=== PATIENT | female | born 1960 | race Caucasian/White ===

== ENCOUNTER 2024-03-02 07:02 | Emergency (ER) | payer OTHER, SELFPAY ==
[2024-03-02] VITALS (19 sets, daily range): BP systolic 125–172; BP diastolic 55–91; PULSE 58–70; RESP 14–20; TEMP 36.5–36.7; O2SAT 98–100
--- NOTE | ~2024-03-02 | CT_ITS ---
CT ANGIOGRAM NECK AND HEAD History: Syncope, dizziness. Technique: Axial noncontrast imaging of the brain was performed. Serial spiral axial images through t he head and neck were then obtained during arterial phase IV injection of 100 cc of Omnipaque 350. 3- D postprocessing and MIP images were then reconstructed on the remote workstation. Dose reduction telma hnique was used on this scan by utilizing automated exposure control and iterative reconstruction telma hnique. The dose-length product (DLP) was 1651.80 mGy-cm. CTA neck findings: Bilateral vertebral arteries are patent. Bilateral common carotid, internal carot id, and external carotid arteries are patent. No large vessel occlusion or stenosis. No aneurysm. The proximal right internal carotid artery demonstrates 0% stenosis relative to the normal distal artery lumen diameter. The proximal left internal carotid artery demonstrates 0% stenosis relative to the n ormal distal artery lumen diameter. CTA head findings: Distal vertebral arteries, basilar artery, posterior cerebral arteries are patent. Distal internal carotid arteries, middle cerebral arteries, anterior cerebral arteries are patent. L eft anterior cerebral artery A1 segment is markedly hypoplastic. No other large vessel occlusion or s tenosis. No aneurysm. Axial noncontrast imaging of the brain is unremarkable. No acute infarct, intracranial hemorrhage or mass lesion seen. No mass effect or midline shift. Focal nonspecific mild hyperdensity noted in the l eft basal ganglia, likely chronic microvascular ischemic change. Paranasal sinuses and mastoid air ce lls are clear. Calvarium intact. Impression: No significant vascular abnormality seen. No definite acute intracranial abnormality seen. Probable focal chronic microvascular ischemic change in the left basal ganglia region. Reviewed, dictated and finalized at location . TECHNICIAN Impression: No significant vascular abnormality seen. No definite acute intracranial abnormality seen. Probable focal chronic microva scular ischemic change in the left basal ganglia region.
--- NOTE | ~2024-03-02 | XR_ITS ---
XR chest 1V portable 03/02/2024 08:16 Indication: Dizziness Procedure: AP portable chest Comparison: No prior studies for comparison. Findings: Heart size normal. There are bilateral interstitial infiltrates. No pleural effusion. No pn eumothorax. No acute osseous abnormality. Impression: 1: Bilateral interstitial infiltrates which may reflect atypical pneumonia or edema. Reviewed, dictated and finalized at location B. T PROTECTION SPECIALIST Impression: 1: Bilateral interstitial infiltrates which may reflect atypical pneumonia or e [place].
--- NOTE | 2024-03-02 07:06 | ECG_ITS ---
Test Date: 2024-03-02 07:11:24 Measurements Intervals [place] Rate: 57 P: 19 TN: 148 QRS: 8 QRSD: 89 T: 30 QT: 401 QTc: 394 Interpretive Statements SINUS BRADYCARDIA NONSPECIFIC T-WAVE ABNORMALITY No previous ECG available for comparison Electronically Signed On 03-02-2024 16:17:00 [employer]OUR[employer]IPE [employer] by Thad Mclean M.D.
--- NOTE | 2024-03-02 07:15 | ED_ITS ---
HPI - Dizziness General Chief Complaint: Dizziness Stated Complaint: dizzy,weak,syncope History of Present Illness HPI Narrative: 63 old female present to the emergency department for evaluation for onset of dizziness and a syncopal episode. States that she felt fine last night and had increased dizziness when she woke up this more. Patient states that when she got up and started walking she had onset of dizziness. Patient is not able to provide much explanation as to what happened this morning or what her symptoms are. Patient's primary complaint at time of evaluation was that she felt tired and cold. Patient reports she does not have any history of chest pain. Patient denies any focal numbness or weakness. Related Data Allergies Allergy/AdvReac Type Severity Reaction Status Date / Time Penicillins Allergy Unknown Unknown Verified 03/02/24 08:21 Review of Systems 2 Review of Systems: All systems reviewed & are unremarkable except as noted in HPI and below PMFSH Family History Family History (Updated 05/03/14 @ 10:06 by DOCTOR UNKNOWN) Other Diabetes mellitus Hypertension Social History Social History Smoking status: Never smoker Alcohol intake: current Exam 2 Narrative: APPEARANCE: Well appearing, no pain, no distress, well-nourished. HEAD: normocephalic, atraumatic. EYES: PERRLA/EOMI, conjunctivae clear. NOSE: Normal no drainage EARS:TMS clear with good light reflex. THROAT: Pharynx clear, no exudate. NECK: Supple. No adenopathy, no masses. RESPIRATORY: Airway patent, respirations nonlabored. Clear to auscultation bilaterally, no rales, rhonchi, wheezing. CARDIOVASCULAR: Regular rate and rhythm without murmurs rubs or gallops. ABDOMINAL: Soft, nontender, nondistended, normal bowel sounds MUSCULOSKELETAL: Moves all extremities. Strength/ROM intact, No edema, No calf tenderness. NEURO: Alert. Cranial nerves II through XII intact. Grossly intact. No focal neuro deficit, no drift. SKIN: Warm, dry. Normal Color Course Vital Signs Vital signs: Vital Signs Pulse Rate 64 03/02/24 07:15 Respiratory Rate 19 03/02/24 07:15 Pulse Oximetry 100 03/02/24 07:15 Temperature 97.8 F 03/02/24 14:30 Pulse Rate 66 03/02/24 14:32 Respiratory Rate 15 03/02/24 14:32 Blood Pressure 157/67 H 03/02/24 14:32 Pulse Oximetry 98 03/02/24 14:30 Oxygen Delivery Room Air 03/02/24 07:34 MDM - Dizziness MDM Narrative Medical decision making narrative: [age] old female presents to the emergency department for evaluation for increased dizziness. Patient was treated with meclizine and felt this improved her symptoms. Patient is afebrile with no leukocytosis and hemoglobin of 14.3. No acute abnormalities on the patient's CMP CTA was negative for acute intracranial abnormality. On reexamination patient states she was having some increased weakness to her right hand but on re-evaluation patient still has a normal neuro exam with no drift and normal strength reflexes. Case was discussed with the hospitalist patient was accepted for admission for further workup including an MRI. After being present in the emergency department patient states she is having some intermittent right hand weakness. On re-examination patient had no pronator drift but patient states that she feels her right hand is becoming increasingly weak. Patient's weakness does resolve with motivation. Patient's MRI was expedited. Prior to having her MRI completed patient signed out against medical advice. Differential Diagnosis Differential diagnosis: Likely other (CVA, TIA, vertigo, central vertigo, peripheral vertigo, seizure) Lab Data Attestation: I reviewed the patient's lab results. 03/02/24 07:59 03/02/24 07:59 Labs: Lab Results 03/02/24 Range/Units 07:59 WBC 9.9 (4.5-10.0) K/mm3 RBC 4.58 (4.2-5.4) M/mm3 Hgb 14.3 (12.0-15.0) g/dL Hct 43.4 (37.0-47.0) % MCV 94.8 (80-100) fl MCH 31.2 (26-34) pg MCHC 32.9 (32-36) g/dl RDW 12.9 (11.5-14.5) % Plt Count 320 (150-375) k/mm3 MPV 10.4 (7.4-10.4) fl Immature Gran % (Auto) 0.7 H (0-0.5) % Neut % (Auto) 83.5 H (45.5-73.1) % Lymph % (Auto) 11.5 L (18.3-44.2) % [place] % (Auto) 3.6 (2.6-8.5) % Eos % (Auto) 0.2 (0-4.4) % Baso % (Auto) 0.5 (0.2-1.2) % Lymph # (Auto) 1.13 (0.9-3.2) K/mm3 [place] # (Auto) 0.4 (0.1-0.6) K/mm3 Eos # (Auto) 0.0 (0-0.3) K/mm3 Baso # (Auto) 0.1 (0.0-0.1) K/mm3 Abs Immat Gran (auto) 0.07 H (0.00-0.031) K/mm3 Absolute Neuts (auto) 8.2 H (1.3-6.7) K/mm3 Absolute Nucleated RBC 0.000 (0.0-0.012) K/mm3 Nucleated RBC % 0.0 (0.0-0.2) % Sodium 140 (137-145) mmol/L Potassium 4.1 (3.4-5.0) mmol/L Chloride 106 (98-107) mmol/L Carbon Dioxide 27 (22-30) mmol/L Anion Gap 7 (4-12) mmol/L BUN 16 (7-17) mg/dL Creatinine 0.80 (0.7-1.0) mg/dL Estim Creat Clear Calc 70 ml/min Estimated GFR > 60 (59 - ) Glucose 125 H (65-110) mg/dL Calcium 9.5 (8.4-10.2) mg/dL Total Bilirubin 0.5 (0.2-1.3) mg/dL AST 29 (14-36) U/L ALT 28 (6-35) U/L Alkaline Phosphatase 92 (38-126) U/L Total Protein 8.0 (6.3-8.2) g/dL Albumin 4.6 (3.5-5.1) g/dL Imaging Data Radiologist's impression: Impressions Chest X-Ray 03/02/24 08:18 Impression: 1: Bilateral interstitial infiltrates which may reflect atypical pneumonia or edema. Head/Neck CTA 03/02/24 09:02 Impression: No significant vascular abnormality seen. No definite acute intracranial abnormality seen. Probable focal chronic microvascular ischemic change in the left basal ganglia region. Discharge Plan Discharge Clinical Impression: Vertigo Patient Disposition: Left Against Medical Advice Condition: Serious Quality Stroke Scale Stroke Scale 1: 1a Level of consciousness: alert-0 1b Level of consciousness questions: answers both correctly-0 1c Level of consciousness commands: obeys both correctly-0 2 Best gaze: normal-0 3 Visual: no visual loss-0 4 Facial palsy: normal-0 5a Motor: left arm: no drift-0 5b Motor: right arm: no drift-0 6a Motor: left leg: no drift-0 6b Motor: right leg: no drift-0 7 Limb ataxia: absent-0 8 Sensory: normal-0 9 Best language: no aphasia-0 10 Dysarthria: normal-0 11 Extinction and inattention: no abnormality-0 Level:: 0
[2024-03-02 08:07] LABS: Basophils Absolute Auto 0.1 K/mm3 (0.0-0.1); Basophils Percent Auto 0.5 % (0.2-1.2); Eosinophils Percent Auto 0.2 % (0-4.4); Hematocrit 43.4 % (37.0-47.0); Hemoglobin 14.3 g/dL (12.0-15.0); Immature Granulocyte Absolute 0.07 K/mm3 (0.00-0.031); Immature Granulocyte Percent A 0.7 % (0-0.5); Lymphocytes Absolute Auto 1.13 K/mm3 (0.9-3.2); Lymphocytes Percent Auto 11.5 % (18.3-44.2); Mean Corpuscular HGB Conc 32.9 g/dl (32-36); Mean Corpuscular Hemoglobin 31.2 pg (26-34); Mean Corpuscular Volume 94.8 fl (80-100); Mean Platelet Volume 10.4 fl (7.4-10.4); Monocytes Absolute Auto 0.4 K/mm3 (0.1-0.6); Monocytes Percent Auto 3.6 % (2.6-8.5); Neutrophils Absolute Auto 8.2 K/mm3 (1.3-6.7); Neutrophils Percent Auto 83.5 % (45.5-73.1); Platelet Count Result 320 k/mm3 (150-375); Red Blood Count 4.58 M/mm3 (4.2-5.4); Red Cell Distribution Width 12.9 % (11.5-14.5); White Blood Count 9.9 K/mm3 (4.5-10.0)
[2024-03-02 08:18] LABS: Alanine Aminotransferase 28 U/L (6-35); Albumin Level 4.6 g/dL (3.5-5.1); Alkaline Phosphatase 92 U/L (38-126); Anion Gap 7 mmol/L (4-12); Aspartate Amino Transferase 29 U/L (14-36); Bilirubin,Total 0.5 mg/dL (0.2-1.3); Blood Urea Nitrogen 16 mg/dL (7-17); Calcium 9.5 mg/dL (8.4-10.2); Carbon Dioxide 27 mmol/L (22-30); Chloride 106 mmol/L (98-107); Estimated CRCL calculation 70 ml/min; Estimated Glomerular Filt Rate > 60; Glucose 125 mg/dL (65-110); Potassium 4.1 mmol/L (3.4-5.0); Sodium 140 mmol/L (137-145)
[2024-03-02] MEDS: MECLIZINE HCL 25 MG TABLET PO (08:22)
[2024-03-02] MEDS: ONDANSETRON INJ 4 MG/2 ML VIAL IV PUSH (08:22)
--- NOTE | 2024-03-02 10:33 | P.HP_ITS ---
H&P: HPI History of Present Illness Date/Time: 03/02/24 10:33 Chief Complaint: Dizziness Narrative: 63 old female with history of hypertension, present ED with a chief complaint of dizziness, syncope. Patient is a poor historian, history is taken from patient and patient's brother. Patient woke up about 4:00 a.m. today, patient found on floor and passed out. Patient felt dizziness, and patient's brother also noticed patient had slurred speech. Patient denies headache, vision change, fever, chills, chest pain, abdomen pain. Patient has trouble with walking because of lightheadedness. Patient repeated told me he could remember what happened to her yesterday in presents of patient's brother. Patient can not recall if he was confused after regained consciousness. Obviously patient did have tongue bite. Patient came to ED for evaluation. When I saw exam patient in the ED, patient had relative weakness of right arm and the leg compared to the left-sided arm leg. Patient brother also noticed patient had slurred speech. Upon arrival to ED, patient is afebrile, uncontrolled hypertension 172/69, pulse ox 100% room air, CTA head neck shows no acute intracranial issues, possible focal chronic microvascular ischemia in the left basal ganglia region, no significant vascular abnormality Review of Systems Review of Systems: ROS negative except above PMFSH Family History Family History (Updated 05/03/14 @ 10:06 by DOCTOR UNKNOWN) Other Diabetes mellitus Hypertension Social History Social History Smoking status: Never smoker Alcohol intake: current Meds Home Medications and Allergies Allergies Allergy/AdvReac Type Severity Reaction Status Date / Time Penicillins Allergy Unknown Unknown Verified 03/02/24 08:21 Vital Signs Vital Signs - 24 hr 03/02/24 07:30 03/02/24 07:31 03/02/24 07:31 Temperature Pulse Rate 67 70 70 Respiratory Rate Blood Pressure 172/69 H 153/77 H Pulse Oximetry Oxygen Delivery 03/02/24 07:34 Temperature 97.9 F Pulse Rate 67 Respiratory Rate 18 Blood Pressure 172/69 H Pulse Oximetry 100 Oxygen Delivery Room Air Exam Narrative: GENERAL: Pleasant, in no acute distress. Well-nourished. Obesity - EYES: EOMI. Anicteric. - HENT: Moist mucous membranes. Bilater al horizontal nystagmus - LUNGS: Clear to auscultation bilateral ly, no wheezing, rhonchi, or rales. - CARDIOVASCULAR: Regular rate and rhyth m. No murmur. No JVD. - ABDOMEN: Soft, non-tender and non-dist ended. No palpable masses. - EXTREMITIES: No edema. Peripheral puls es 2+. Non-tender. - NEUROLOGIC: No focal neurological defi cits. CN II-XII grossly intact. - PSYCHIATRIC: Awake, Alert and oriented x 3. Appropriate mood and affect. Strength 4/5 of right arm and right leg, strengh 5/5 of left arm and leg - SKIN: No rashes or lesions. Warm. - LYMPH: No cervical lymphadenopathy. H&P: Results Labs Labs: Short CBC 03/02/24 Range/Units 07:59 WBC 9.9 (4.5-10.0) K/mm3 Hgb 14.3 (12.0-15.0) g/dL Hct 43.4 (37.0-47.0) % Plt Count 320 (150-375) k/mm3 BMP 03/02/24 07:59 Sodium 140 Potassium 4.1 Chloride 106 Carbon Dioxide 27 BUN 16 Creatinine 0.80 Glucose 125 H Calcium 9.5 Liver Function 03/02/24 Range/Units 07:59 Total Bilirubin 0.5 (0.2-1.3) mg/dL AST 29 (14-36) U/L ALT 28 (6-35) U/L Alkaline Phosphatase 92 (38-126) U/L Albumin 4.6 (3.5-5.1) g/dL Assessment and Plan Assessment and plan (1) Dizziness: Code(s): R42 - Dizziness and giddiness Status: Acute (2) Fall: Code(s): W19.XXXA - Unspecified fall, initial encounter Status: Acute (3) Uncontrolled hypertension: Code(s): I10 - Essential (primary) hypertension Status: Acute (4) Acute CVA (cerebrovascular accident): Code(s): I63.9 - Cerebral infarction, unspecified Status: Acute Plan Dizziness, Patient had a sudden onset dizziness in the night. Patient also had and slurred speech, relative weakness of right arm and right leg, CT head shows no acute intracranial issues, no large vessel occlusion Patient has bilateral horizontal nystagmus Differential including acute CVA, seizure, vertigo I discussed the case with ER doctor Dr. Duran and neurologist Dr. Cavazos ordered stat MRI of brain Neuro check shelter monitor Echocardiogram with bubble study Waiting the consultation of Dr. Cavazos regarding further treatment and diagnosis Follow-up lipid panel, A1c syncope, Unclear etiologies Place patient telemetry monitoring Also static test Echocardiogram pending Uncontrolled hypertension Hold hypertension medication except systolic blood pressure above 220 or diastolic blood pressure above 120 given risk of stroke. Patient may stay more than 2 midnights in hospital Hospitalist MIPS Advance Care Plan I have confirmed that the patient's Advanced Care Plan is present, code status is documented, or surrogate decision maker is listed in patient medical record.: Yes Medication Reconciliation The patient is not eligible for med reconciliation; the patient is in a emergent medical situation where delaying treatment would jeopardize the patients health.: Yes
[2024-03-02] MEDS: diazePAM INJ (*CRX) 10 MG/2 ML SYRINGE 2.5 MG IV PUSH (11:21)
--- NOTE | 2024-03-02 15:04 | PC.NURSE ---
Pt left [facility] ED at 1450 with both her brothers. Brothers report she has been in the ED for 9 hrs and has not had an MRI and they feel this is not acceptable. They also report pt can't use her right side now. I assist pt in dressing and witnessed her using her right side. She was able to raise arm to put shirt on and and was holding self up with both arms behind her. Pt also stood up so I could pull her pants on.
== END 2024-03-02 15:10 | disposition left against medical advice (07) ==
LOC: ANHED 08:51 → ANH3MEDSUR 12:11
PROVIDERS: Emergency Provider Emergency Medicine; Visit Provider Internal Medicine
DX: R42 Dizziness and giddiness (principal); I10 Essential (primary) hypertension; I63.9 Cerebral infarction, unspecified; R29.700 NIHSS score 0; R00.1 Bradycardia, unspecified; R94.31 Abnormal electrocardiogram [ECG] [EKG]
CPT/HCPCS: 36415; 70496; 70498; 71045; 80053; 85025; 93005; 96374; 96375; 96376; 99285; A9270; J2405; J3360; Q9967